=== PATIENT | male | born 1985 | race Two or more races ===

== ENCOUNTER 2020-04-22 18:00 | Emergency (ER) | payer MEDICAID ==
[~2020-04-22] VITALS: Ht 162.6 cm; Wt 65.0 kg
[2020-04-22] MEDS ORDERED: KETOROLAC 30MG/ML VIAL IV ONE (20:00)
[2020-04-22] MEDS ORDERED: DIPHENHYDRAMINE 50MG/ML VIAL IV ONE (20:00)
[2020-04-22] MEDS ORDERED: FAMOTIDINE 20MG/2ML VIAL IV ONE (20:00)
[2020-04-22] MEDS ORDERED: EPINEPHRINE 1:1000 1 MG/ML AMP INJ ONE (20:00)
[2020-04-22] MEDS ORDERED: METHYLPREDNISOLONE SOD SUCC 125 MG/2 ML VIAL IV ONE (20:00)
[2020-04-22] MEDS ORDERED: CEFTRIAXONE 1 G PREMIX 50 ML IV ONE (21:45)
[2020-04-22] MEDS ORDERED: AZITHROMYCIN 500 MG in DEXT 5% WATER 250 ML IV ONE (21:45)
[2020-04-22 23:10] LABS: BASOPHILS % 0.4 % (0.0-2.0); EOSINOPHILS % 0.2 % (0.0-5.0); HEMATOCRIT. 45.2 % (42.0-52.0); HEMOGLOBIN. 15.2 g/dL (14.0-18.0); LYMPHOCYTES % 13.5 % (20.0-50.0); MEAN CORPUSCULAR HEMOGLOBIN 30.6 pg (28.0-32.0); MEAN CORPUSCULAR VOLUME 90.8 fL (80.0-94.0); MEAN PLATELET VOLUME 9.3 fl (7.4-10.4); MONOCYTES % 1.6 % (2.0-8.0); NEUTROPHILS % 84.3 % (40.0-76.0); PLATELET 259 x1000/uL (130-400); RED BLOOD CELL COUNT 4.98 mill/uL (4.7-6.1); RED CELL DISTRIBUTION WIDTH 13.8 % (11.6-14.6)
[2020-04-22 23:15] LABS: CHLORIDE 106 mEq/L (98-107)
[2020-04-23] MEDS ORDERED: ACETAMINOPHEN 325MG TABLET PO PRN (01:30)
[2020-04-23] MEDS ORDERED: TRAZODONE HCL 50MG TABLET PO PRN (01:30)
[2020-04-23] MEDS ORDERED: ONDANSETRON HCL 4MG/2ML INJ IV PRN (01:30)
[2020-04-23 04:00] VITALS: BP 121/69
[2020-04-23] MEDS ORDERED: HEPARIN 5000 UNITS/ML VIAL SUBCUT SCH (09:00)
== END 2020-04-23 04:15 | disposition left against medical advice (07) ==
LOC: ER 18:00 → ENRESERV 04-23 03:24 → CANRESERV 04-23 03:24 → ER 04-23 04:15 → CANBEDREQ 04-23 04:16
DX: U07.1 COVID-19 (principal); J18.9 Pneumonia, unspecified organism; R65.20 Severe sepsis without septic shock; T63.441A Toxic effect of venom of bees, accidental (unintentional), initial encounter; Y92.89 Other specified places as the place of occurrence of the external cause
CPT/HCPCS: 36415; 71045; 80053; 83605; 83880; 84145; 84484; 85025; 87040; 87635; 93005; 96365; 96367; 96375; 99291; J0456; J0696; J1200; J1885; J2930; J3490; J7060